=== PATIENT | female | born 1965 | race Caucasian/White ===

== ENCOUNTER 2020-12-06 09:59 | Outpatient (CLI) | payer BC, MEDICARE ==
[2020-12-06 11:10] LABS: Anion Gap 16 mmol/L (10-20); BUN (Urea Nitrogen) 12 mg/dL (9.8-20.1); Calc. Creatinine Clearance 0 mL/min (70-130); Calcium 9.8 mg/dL (7.8-10.44); Carbon Dioxide 24 mmol/L (22-29); Chloride 101 mmol/L (98-107); Glucose 116 mg/dL (70-105); Potassium 4.2 mmol/L (3.5-5.1); Sodium 137 mmol/L (136-145)
[2020-12-06 20:01] LABS: SARS-CoV-2 PCR by NAA Not Detected (NotDetected)
== END 2020-12-06 10:00 | disposition home or self-care (01) ==
LOC: LABBT 09:59
PROVIDERS: ATTEND Neurological Surgery
DX: Z01.818 Encounter for other preprocedural examination (principal); M54.16 Radiculopathy, lumbar region; Z20.822 Contact with and (suspected) exposure to COVID-19
CPT/HCPCS: 80048; U0003; U0005

== ENCOUNTER 2020-12-11 05:55 | Day surgery (SDC) | payer BC, MEDICARE ==
[2020-12-11] MEDS ORDERED: EPINEPHrine 1 MG/ML AMP ONE (06:31)
[2020-12-11] MEDS ORDERED: Thrombin 5000 UNITS/5 ML VIAL ONE (06:31)
[2020-12-11] MEDS ORDERED: Bupivacaine PF 0.5% 30 ML VIAL ONE (06:31)
[2020-12-11] MEDS ORDERED: Fentanyl 100 MCG/2 ML VIAL ONE ×3 (06:43→08:48)
[2020-12-11] MEDS ORDERED: Famotidine/PF 20 mg/2ml Vial ONE (06:43)
[2020-12-11] MEDS ORDERED: Clindamycin/D5W 900 mg/50 ml Premix Bag ONE (06:47)
[2020-12-11] MEDS ORDERED: Scopolamine 1.5 mg/72 hour Patch ONE (06:47)
[2020-12-11] MEDS ORDERED: Levofloxacin 500 mg/D5W 100 ml Premix Bag ONE (06:47)
[2020-12-11] MEDS ORDERED: Midazolam HCl 2 mg/2 ml Vial ONE (06:47)
[2020-12-11] MEDS ORDERED: Ketorolac Tromethamine 30 MG/ML VIAL ONE (07:02)
[2020-12-11] MEDS ORDERED: Rocuronium Bromide 10 MG/ML (10ML VIAL) ONE (07:02)
[2020-12-11] MEDS ORDERED: Lidocaine 1% PF 5 ML VIAL ONE (07:02)
[2020-12-11] MEDS ORDERED: Metoclopramide HCl 10 MG/2 ML VIAL ONE (07:02)
[2020-12-11] MEDS ORDERED: Ondansetron PF 4 MG/2 ML Vial ONE (07:02)
[2020-12-11] MEDS ORDERED: PROPOFOL 200 MG/20 ML VIAL ONE (07:02)
[2020-12-11] MEDS ORDERED: PHENYLEPHRINE-NS 100 MCG/ML 10 ML SYRINGE ONE (07:02)
[2020-12-11] MEDS ORDERED: SUGAMMADEX SODIUM 200 MG/2 ML VIAL ONE (07:56)
== END 2020-12-11 10:25 | disposition home or self-care (01) ==
LOC: SDC 05:55
PROVIDERS: ATTEND Neurological Surgery
PROC: 01NB0ZZ Release Lumbar Nerve, Open Approach (ICD-10-PCS; principal; 2020-12-11)
DX: M54.16 Radiculopathy, lumbar region (principal); M48.061 Spinal stenosis, lumbar region without neurogenic claudication; I10 Essential (primary) hypertension; E78.5 Hyperlipidemia, unspecified; G47.30 Sleep apnea, unspecified; E11.9 Type 2 diabetes mellitus without complications; M19.90 Unspecified osteoarthritis, unspecified site; G89.4 Chronic pain syndrome; Z79.1 Long term (current) use of non-steroidal anti-inflammatories (NSAID); Z79.84 Long term (current) use of oral hypoglycemic drugs; Z79.899 Other long term (current) drug therapy; Z88.0 Allergy status to penicillin; Z88.2 Allergy status to sulfonamides; Z88.5 Allergy status to narcotic agent; Z91.041 Radiographic dye allergy status
CPT/HCPCS: 76000; J0171; J1885; J1956; J2250; J2405; J2704; J2765; J3010; J3490; S0020; S0028

== ENCOUNTER 2022-08-15 10:37 | Outpatient (CLI) | payer BC, MEDICARE | END 2022-08-15 10:38 | disposition home or self-care (01) | LOC: TBSIIMAG 10:37 | PROVIDERS: ATTEND Neurological Surgery | DX: M43.16 Spondylolisthesis, lumbar region (principal); M54.50 Low back pain, unspecified; M54.12 Radiculopathy, cervical region; M51.36 Other intervertebral disc degeneration, lumbar region; Z98.890 Other specified postprocedural states | CPT/HCPCS: 72120 ==

== ENCOUNTER 2022-10-15 08:35 | Outpatient (CLI) | payer OTHER ==
[2022-10-15 10:32] LABS: Anion Gap 15 mmol/L (10-20); BUN (Urea Nitrogen) 14 mg/dL (9.8-20.1); Calc. Creatinine Clearance 0 mL/min (70-130); Calcium 9.9 mg/dL (7.8-10.44); Carbon Dioxide 26 mmol/L (22-29); Chloride 104 mmol/L (98-107); Estimated GFR 82; Glucose 109 mg/dL (70-105); Potassium 4.1 mmol/L (3.5-5.1); Sodium 141 mmol/L (136-145)
== END 2022-10-15 08:36 | disposition home or self-care (01) ==
LOC: LABBT 08:35
PROVIDERS: ATTEND Neurological Surgery
DX: Z01.818 Encounter for other preprocedural examination (principal); M43.16 Spondylolisthesis, lumbar region; M54.50 Low back pain, unspecified
CPT/HCPCS: 80048; 93005; 93010

== ENCOUNTER 2022-10-18 06:35 | Day surgery (SDC) | payer OTHER ==
[2022-10-15 09:17] VITALS: BMI 25.0
[2022-10-18] MEDS ORDERED: Acetaminophen 500 MG TAB ONE (07:28)
[2022-10-18] MEDS ORDERED: Scopolamine 1.5 mg/72 hour Patch ONE (07:42)
[2022-10-18] MEDS ORDERED: Sodium Chloride 0.9% 100 ML ONE (07:43)
[2022-10-18] MEDS ORDERED: CEFAZOLIN 2 GM VIAL ONE (07:43)
[2022-10-18] MEDS ORDERED: Bupivacaine HCl 0.5%/Epinephrine 1:200,000/PF 30 ml Vial ONE (08:28)
[2022-10-18] MEDS ORDERED: Fentanyl 250 MCG/5 ML VIAL ONE (08:40)
[2022-10-18] MEDS ORDERED: NEOSTIGMINE 3 MG/3 ML SYR 3 MG/3 ML SYRINGE ONE (08:53)
[2022-10-18] MEDS ORDERED: Rocuronium Bromide 10 MG/ML (10ML VIAL) ONE (08:53)
[2022-10-18] MEDS ORDERED: Ondansetron PF 4 MG/2 ML Vial ONE (08:53)
[2022-10-18] MEDS ORDERED: Glycopyrrolate 0.2 MG/ML 5 ML SYRINGE ONE (08:53)
[2022-10-18] MEDS ORDERED: PROPOFOL 200 MG/20 ML VIAL ONE (08:53)
[2022-10-18] MEDS ORDERED: Dexamethasone 20 MG/5 ML VIAL ONE (08:53)
[2022-10-18] MEDS ORDERED: Lidocaine 1% PF 5 ML VIAL ONE (08:53)
[2022-10-18] MEDS ORDERED: PHENYLEPHRINE-NS 100 MCG/ML 10 ML SYRINGE ONE (08:53)
[2022-10-18] MEDS ORDERED: fentaNYL 50 mcg/mL 1 mL Vial ONE ×3 (11:32→12:02)
[2022-10-18] MEDS ORDERED: HYDROmorphone 0.5 MG/0.5 ML SYRINGE ONE (11:40)
[2022-10-18] MEDS ORDERED: HYDROcodone/Acetaminophen 5/325 mg Tablet ONE ×2 (14:11)
== END 2022-10-18 15:30 | disposition home or self-care (01) ==
LOC: SDC 06:35
PROVIDERS: ATTEND Neurological Surgery
PROC: 0JPT0MZ Removal of Stimulator Generator from Trunk Subcutaneous Tissue and Fascia, Open Approach (ICD-10-PCS; principal; 2022-10-18)
PROC: 00PV0MZ Removal of Neurostimulator Lead from Spinal Cord, Open Approach (ICD-10-PCS; 2022-10-18)
PROC: 0SG0071 Fusion of Lumbar Vertebral Joint with Autologous Tissue Substitute, Posterior Approach, Posterior Column, Open Approach (ICD-10-PCS; 2022-10-18)
DX: M51.16 Intervertebral disc disorders with radiculopathy, lumbar region (principal); M48.061 Spinal stenosis, lumbar region without neurogenic claudication; G89.4 Chronic pain syndrome; E78.5 Hyperlipidemia, unspecified; I10 Essential (primary) hypertension; E11.9 Type 2 diabetes mellitus without complications; Z79.84 Long term (current) use of oral hypoglycemic drugs; Z79.899 Other long term (current) drug therapy; Z88.0 Allergy status to penicillin; Z88.2 Allergy status to sulfonamides; Z88.5 Allergy status to narcotic agent; Z91.041 Radiographic dye allergy status; Z96.82 Presence of neurostimulator; Z98.1 Arthrodesis status
CPT/HCPCS: 20930; 20936; 22612; 63047; 63662; 63688; C1713; C1768; C1889; J3010; J1100; J1170; J2405; J2704; J3490

== ENCOUNTER 2023-09-19 05:49 | Inpatient (IN) | payer OTHER, MEDICARE ==
[2023-09-18 14:20] VITALS: BMI 26.6
[2023-09-19] MEDS ORDERED: EPINEPHrine 1 MG/ML VIAL ONE (06:14)
[2023-09-19] MEDS ORDERED: Bupivacaine PF 0.5% 30 ML VIAL ONE (06:14)
[2023-09-19] MEDS ORDERED: Thrombin 5000 UNITS/5 ML VIAL ONE (06:14)
[2023-09-19 06:46] LABS: Hemoglobin 11.1 g/dL (12.0-16.0); Mean Corpuscular HGB CONC 31.7 g/dL (32.0-36.0); Mean Corpuscular Hemoglobin 28.2 pg (27.0-31.0); Mean Corpuscular Volume 89.1 fL (78.0-98.0); Mean Platelet Volume 11.3 fL (7.4-10.4); Platelet Count 197 10x3/uL (130-400); RBC Distribution Width 13.8 % (11.5-14.5); Red Blood Cell (RBC) Count 3.93 mill/uL (4.20-5.40)
[2023-09-19] MEDS ORDERED: fentaNYL PF 100 MCG/2 ML SYRINGE ONE ×3 (06:50→09:33)
[2023-09-19] MEDS ORDERED: Lidocaine 1% PF 5 ML VIAL ONE (06:51)
[2023-09-19] MEDS ORDERED: PROPOFOL 20 ML ONE (06:51)
[2023-09-19] MEDS ORDERED: Rocuronium Bromide 10 MG/ML (10ML VIAL) ONE (06:51)
[2023-09-19] MEDS ORDERED: LevoFLOXacin D5W 500 mg (100 mL) BAG ONE (06:53)
[2023-09-19] MEDS ORDERED: Clindamycin/D5W 900 mg/50 ml Premix Bag ONE (06:54)
[2023-09-19 06:58] LABS: Anion Gap 15 mmol/L (10-20)
[2023-09-19 07:01] LABS: BUN (Urea Nitrogen) 17 mg/dL (9.8-20.1); Calc. Creatinine Clearance 80 mL/min (70-130); Calcium 9.1 mg/dL (7.8-10.44); Carbon Dioxide 25 mmol/L (22-29); Chloride 106 mmol/L (98-107); Estimated GFR 81; Glucose 121 mg/dL (70-105); Potassium 3.8 mmol/L (3.5-5.1); Sodium 142 mmol/L (136-145)
[2023-09-19] MEDS ORDERED: Dexamethasone 20 MG/5 ML VIAL ONE (07:49)
[2023-09-19] MEDS ORDERED: ePHEDrine Sulfate 50 MG/10 ML VIAL ONE (07:57)
[2023-09-19] MEDS ORDERED: PHENYLEPHRINE-NS 100 MCG/ML 10 ML SYRINGE ONE (07:59)
[2023-09-19] MEDS ORDERED: Ondansetron PF 4 MG/2 ML Vial ONE (08:36)
[2023-09-19] MEDS ORDERED: SUGAMMADEX SODIUM 200 MG/2 ML VIAL ONE (08:39)
[2023-09-19] MEDS ORDERED: fentaNYL 50 mcg/mL 1 mL Vial ONE ×2 (09:02→10:28)
[2023-09-19] MEDS ORDERED: HYDROmorphone 0.5 MG/0.5 ML SYRINGE ONE (09:17)
[2023-09-19] MEDS ORDERED: HYDROcodone/Acetaminophen 5/325 mg Tablet ONE (10:52)
== END 2023-09-19 11:56 | disposition home or self-care (01) | DRG 473 ==
LOC: SURG A 05:49
PROVIDERS: ADMIT Neurological Surgery; ATTEND Neurological Surgery
PROC: 0RG2071 Fusion of 2 or more Cervical Vertebral Joints with Autologous Tissue Substitute, Posterior Approach, Posterior Column, Open Approach (ICD-10-PCS; principal; 2023-09-19)
PROC: 3E033XZ Introduction of Vasopressor into Peripheral Vein, Percutaneous Approach (ICD-10-PCS; 2023-09-19)
DX: M50.121 Cervical disc disorder at C4-C5 level with radiculopathy (principal); M50.122 Cervical disc disorder at C5-C6 level with radiculopathy; G89.29 Other chronic pain; F41.9 Anxiety disorder, unspecified; E78.5 Hyperlipidemia, unspecified; K21.9 Gastro-esophageal reflux disease without esophagitis; I10 Essential (primary) hypertension; Z98.890 Other specified postprocedural states; Z88.5 Allergy status to narcotic agent; Z80.0 Family history of malignant neoplasm of digestive organs; Z88.2 Allergy status to sulfonamides; Z88.0 Allergy status to penicillin
CPT/HCPCS: 80048; 85027; 93005; 93010; C1713; C1889; J0171; J0665; J1100; J1170; J1956; J2405; J2704; J3010; J3490